=== PATIENT | female | born 1995 | race African-American/Black ===

== ENCOUNTER 2016-08-06 18:15 | Emergency (ER) | payer OTHER ==
[~2016-08-06 18:15] MED LIST: ARISTOCORT OINT15 GM TOP; BENADRYL/LIDO/MAALOX PO; BROMFED DM COU118 ML PO; DEPO-SUBQ104 MG/0.6 SC; FIORICET 325 MG1 TAB PO; METFORMIN HCL500 MG PO; METFORMIN HYDR500 MG PO; ROBITUSSIN W/CO10 ML PO; TESSALON PERLE100 MG PO; ZOFRAN4 M2 PO
--- NOTE | 2016-08-06 19:03 | ED INFLUENZA/URI COMPLAINT ---
History of Present Illness General Chief Complaint: General Adult Stated Complaint: "I GOT A BAD COUGH" Source: patient Exam Limitations: no limitations Vital Signs & Intake/Output Vital Signs & Intake/Output Vital Signs Date Time Temp Pulse Resp B/P Pulse O2 O2 Flow FiO2 Ox Delivery Rate 08/07 1939 97.8 92 18 135/84 98 Room Air 08/06 1829 97.6 93 137/88 97 Allergies Coded Allergies: NO KNOWN ALLERGIES (08/27/15) Reconcile Medications Insulin Glargine,Hum.rec.anlog (Lantus Solostar) (Unknown Strength) INSULN.PEN (Unknown Dose) SC BID DM (Reported) Liraglutide (Victoza 2-Lucio) (Unknown Strength) PEN.INJCTR (Unknown Dose) SC QAM DM (Reported) Medroxyprogesterone Acetate (Depo-Provera) 150 MG/ML SYRINGE 1 ML IM Q3M CONTROL (Reported) Triage Note: PER PT COUGH AND SORE THROAT CHILLS RECENTLY HAD A COLD LAST WEEK. PER PT DOES NOT GET A PERIOD. D/T DEPO.UNABLE TO PRODUCE SPUTUM PAIN TO THROAT Triage Nurses Notes Reviewed? yes Onset: Gradual Duration: constant Timing: recent history Severity: mild Severity Numbers: 3 No Modifying Factors: none : No Patient currently breastfeeds: No HPI: Patient is a 20-year-old female who presents emergency in approximately one week ago she was complaining of a runny nose and then in the last 2-3 days she's been complaining of nonproductive persistent cough sore throat and chills. Patient has positive sick contacts. Denies any chest pain shortness of breath hemoptysis nausea vomiting abdominal pain. (JOSE GUADALUPE KILGORE) Past History Travel History Traveled to [place] past 21 day No Medical History Any Pertinent Medical History? 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 No (JOSE GUADALUPE KILGORE) Review of Systems Review of Systems Constitutional: Reports: see HPI. EENTM: Reports: see HPI. Respiratory: Reports: see HPI, cough. Cardiovascular: Reports: no symptoms. GI: Reports: no symptoms. Genitourinary: Reports: no symptoms. Musculoskeletal: Reports: no symptoms. Skin: Reports: no symptoms. Neurological/Psychological: Reports: no symptoms. Hematologic/Endocrine: Reports: no symptoms. Immunologic/Allergic: Reports: no symptoms. All Other Systems: Reviewed and Negative (JOSE GUADALUPE KILGORE) Physical Exam Physical Exam Ears, Nose, Throat: normal ENT inspection, moist mucous membrane, hearing grossly normal, Tympanic normal, pharynx normal Comments: Well-developed well-nourished person in no acute distress HEENT: Normal EENT exam, extraocular motion intact, no nystagmus. Pupils equally round and reactive to light and accommodation. Nose is atraumatic. External auditory canal and Tympanic membranes clear. Pharynx normal. No swelling or edema. Neck: Supple, no lymphadenopathy, normal range of motion without pain or tenderness Back: Nontender, no CVA tenderness. Cardiovascular: Regular rate and rhythms no murmurs rubs or gallops, normal JVP Respiratory: Chest nontender. No respiratory distress.breath sounds clear to auscultation bilaterally Abdomen: Soft, nontender nondistended, no appreciable organomegaly. Normal bowel sounds. No ascites Extremity: No edema, no calf tenderness to palpation, normal and equal pulses. Neuro: Alert oriented x3, motor sensory normal, Skin: No appreciable rash on exposed skin, skin is warm and dry. Psych: Mood and affect is normal, memory and judgment is normal. Core Measures Severe Sepsis Present: No Septic Shock Present: No (JOSE GUADALUPE KILGORE) Progress Differential Diagnosis: influenza, meningitis, neutropenia, otitis, pneumonia, pharyngitis, sinusitis Plan of Care: Orders Procedure Date/time Status THROAT CULTURE W/QUICK STREP 08/06 1832 Active Laboratory Tests 08/06/16 1905: Urine Test Cancelled Patient was in no apparent distress nontoxic-appearing afebrile clear lungs auscultation ENT exam was unremarkable. (JOSE GUADALUPE KILGORE) Initial ED EKG: none (JOSE GUADALUPE KILGORE) Departure Departure Disposition: HOME OR SELF CARE Condition: Stable Clinical Impression Primary Impression: Upper respiratory infection Referrals: JEREMY LI,MARÍA Lau (PCP/Family) Additional Instructions: As discussed begin the prescription of azithromycin as directed for the full course, please begin the prescription of TESSALON PERLES for Cough and Medrol Dosepak for Inflammation,. Prescriptions Waiting at [facility]. If Symptoms Worsen Return to Emergency. If No Better in One Week Follow-Up with Her Primary Care Doctor. Departure Forms: Customer Survey General Discharge Information (SHARRON MORENO,JOSE GUADALUPE) PA/WAGE ADJUSTER Co-Sign Statement Statement: ED Attending supervision documentation- [] I saw and evaluated the patient. I have also reviewed all the pertinent lab results and diagnostic results. I agree with the findings and the plan of care as documented in the PA's/WAGE ADJUSTER's documentation. [X] I have reviewed the ED Record and agree with the PA's/WAGE ADJUSTER's documentation. [] Additions or exceptions (if any) to the PAs/WAGE ADJUSTER's note and plan are summarized below: [] (JOHN LI,NATHALY Chavez)
[2016-08-06] MEDS ORDERED: TESSALON PERLE100 M1 PO (19:14)
[2016-08-06] MEDS ORDERED: ZITHROMAX500 M2 PO (19:14)
[2016-08-06] MEDS ORDERED: MEDROL4 M2 PO (19:14)
[2016-08-06] MEDS ORDERED: LANTUS SOL100 UNIT/1 SC (19:19)
[2016-08-06] MEDS ORDERED: VICTOZA 2-0.6 MG/0.1 SC (19:19)
[2016-08-06] MEDS ORDERED: DEPO-PROVE150 MG/11 IM (19:20)
[2016-08-06 19:40] VITALS: BP 135/84
== END 2016-08-06 19:40 ==
LOC: ERH 18:15
DX: J06.9 Acute upper respiratory infection, unspecified (principal)
CPT/HCPCS: 81025

== ENCOUNTER 2017-10-31 14:20 | Emergency (ER) | payer OTHER ==
[~2017-10-31] VITALS: Ht 180.3 cm; Wt 149.7 kg
[~2017-10-31 14:20] MED LIST changes: +DEPO-PROVE150 MG/11 IM; +HYDROXYZINE HCL50 M1 PO; +LANTUS SOL100 UNIT/1 SC; +MEDROL4 M2 PO; +PREDNISONE10 M2 PO; +TESSALON PERLE100 M1 PO; +VICTOZA 2-0.6 MG/0.1 SC; +ZITHROMAX500 M2 PO
[2017-10-31 14:28] VITALS: BP 154/105
[2017-10-31 14:57] LABS: ABSOLUTE BASOPHIL COUNT 0.1 /CUMM (0.0-0.2); ABSOLUTE EOSINOPHIL COUNT 0.1 /CUMM (0.0-0.7); ABSOLUTE GRANULOCYTE CT 4.2 /CUMM (1.4-6.5); ABSOLUTE LYMPH COUNT 3.2 /CUMM (1.2-3.4); ABSOLUTE MONOCYTE COUNT 0.6 /CUMM (0.10-0.60); BASOPHIL % 0.7 % (0.0-2.0); EOSINOPHIL % 1.7 % (0-5); GRANULOCYTE % 50.6 % (42.2-75.2); HEMATOCRIT 36.4 % (37-47); MEAN CORPUSCULAR HGB 27.5 PG (27.0-31.0); MEAN CORPUSCULAR HGB CONC 32.1 G/DL (33.0-37.0); MEAN CORPUSCULAR VOLUME 85.8 FL (81.0-99.0); MEAN PLATELET VOLUME 9.5 FL (7.4-10.4); PLATELET COUNT 310 /CUMM (130-400); RBC DISTRIBUTION WIDTH 13.7 % (11.5-14.5); RED BLOOD CELL CT 4.24 /CUMM (4.20-5.40); WHITE BLOOD CELL COUNT 8.3 /CUMM (4.8-10.8)
--- NOTE | 2017-10-31 16:53 | ED GENERAL ADULT ---
History of Present Illness General Chief Complaint: General Adult Stated Complaint: PT NEED TO GET RX FOR SUGAR Source: patient Exam Limitations: no limitations Vital Signs & Intake/Output Vital Signs & Intake/Output Vital Signs Date Time Temp Pulse Resp B/P B/P Pulse O2 O2 Flow FiO2 Mean Ox Delivery Rate 10/31 1428 97.3 93 18 154/105 95 Room Air Allergies Coded Allergies: NO KNOWN ALLERGIES (08/27/15) Reconcile Medications Hydroxyzine Hydrochloride (Atarax) 50 MG TAB 1 TAB PO TID PRN ITCHING Insulin Glargine,Hum.rec.anlog (Lantus Solostar) (Unknown Strength) INSULN.PEN (Unknown Dose) SC BID DM (Reported) Liraglutide (Victoza 2-Lucio) (Unknown Strength) PEN.INJCTR (Unknown Dose) SC QAM DM (Reported) Medroxyprogesterone Acetate (Depo-Provera) 150 MG/ML SYRINGE 1 ML IM Q3M CONTROL (Reported) Metformin HCl (Metformin HCl ER) 500 MG TAB.ER.24 1 TAB PO BID diabetes Prednisone 10 MG TABLET 1 DOSE PO ONCE DAILY RASH 6 TABS X3 DAYS, 5 TAB 3 DAYS, 4 X3 DAYS, 3X3 DAYS, 2X3 DAYS 1 X 3 DAYS Triage Note: 21 Y/O FEMALE REQUESTING PRESCRIPTIONS FOR VICTOZA AND LANTUS. STATES SHE HAS BEEN OUT OF MEDS "FOR A WHILE" (>1 MONTH) DUE TO BEING ABLE TO GO TO DOCTOR AFTER TURNING 21 YEARS OLD. PT REPORTS INCREASED DIAPHORESIS AND URINATION. FINGERSTICK IN TRIAGE 131 EVAL'D BY JOSH HANNAH. Triage Nurses Notes Reviewed? yes Onset: Gradual Duration: week(s): Timing: recent history Severity: moderate : No Patient currently breastfeeds: No HPI: 21-year-old female with history of type 2 diabetes presents to emergency department requesting medication refills and referral to a new scrip clerk. Patient states that since she turned 21 she is not been able to follow up with her pediatric scrip clerk. Patient states she's been out of her medications for about one month or longer. Patient was formerly taking Victoza, Lantus, metformin. Patient states that fingerstick glucoses at home has been "high" however she does not remember the amounts. Patient reports polydipsia, intermittent diaphoresis, urinary frequency, intermittent headaches. Currently patient does not have a headache. (Radha Rivero) Past History Travel History Traveled to [place] past 21 day No Medical History Any Pertinent Medical History? 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 No (Radha Rivero) Review of Systems Review of Systems Constitutional: Reports: see HPI. EENTM: Reports: no symptoms. Respiratory: Reports: no symptoms. Cardiovascular: Reports: no symptoms. GI: Reports: no symptoms. Genitourinary: Reports: see HPI. Musculoskeletal: Reports: no symptoms. Skin: Reports: no symptoms. Neurological/Psychological: Reports: see HPI. Hematologic/Endocrine: Reports: see HPI. Immunologic/Allergic: Reports: no symptoms. All Other Systems: Reviewed and Negative (Radha Rivero) Physical Exam Physical Exam General Appearance: well developed/nourished, no apparent distress, alert, awake , obese Head: atraumatic, normal appearance Eyes: Bilateral: normal appearance. Ears, Nose, Throat: hearing grossly normal Neck: normal inspection, supple, full range of motion Respiratory: normal breath sounds, no respiratory distress, lungs clear Cardiovascular: regular rate/rhythm Gastrointestinal: normal bowel sounds, soft, non-tender, no organomegaly Back: normal inspection, normal range of motion Extremities: normal inspection, normal range of motion Neurologic/Psych: awake, alert, oriented x 3 Skin: intact, normal color, warm/dry Core Measures ACS in differential dx? No CVA/TIA Diagnosis: No Sepsis Present: No Sepsis Focused Exam Completed? No (Radha Rivero) Progress Differential Diagnoses I considered the following diagnoses in my evaluation of the patient: [Diabetes, hyperglycemia, electrolyte abnormality, UTI] Plan of Care: Orders Procedure Date/time Status URINALYSIS 10/31 1432 Complete COMPREHENSIVE METABOLIC PANEL 10/31 1432 Complete CBC WITHOUT DIFFERENTIAL 10/31 143 Complete Laboratory Tests 10/31/17 1627: Urinalysis MOD H, Urine Color YEL, Urine Clarity CLDY H, Urine pH 6.0, Ur Specific Foss >= 1.030, Urine Protein NEG, Urine Ketones NEG, Urine Nitrite NEG, Urine Bilirubin NEG, Urine Urobilinogen 0.2, Ur Leukocyte Esterase NEG, Ur Microscopic SEDIMENT EXAMINED, Urine RBC RARE, Urine WBC 3-5 H, Ur Epithelial Cells MANY H, Urine Bacteria MANY H, Urine Mucus MANY H, Urine Hemoglobin NEG , Urine Glucose NEG 10/31/17 1447: Anion Gap 12, Estimated GFR > 60, BUN/Creatinine Ratio 12.9, Glucose 139 H, Calcium 9.5, Total Bilirubin 0.6, AST 20, ALT 29, Alkaline Phosphatase 51, Total Protein 7.8, Albumin 4.2, Globulin 3.6, Albumin/Globulin Ratio 1.2, CBC w Diff NO MAN DIFF REQ, RBC 4.24, MCV 85.8, MCH 27.5, MCHC 32.1 L, RDW 13.7, MPV 9.5, Gran % 50.6, Lymphocytes % 39.2, Monocytes % 7.8, Eosinophils % 1.7, Basophils % 0.7, Absolute Granulocytes 4.2, Absolute Lymphocytes 3.2, Absolute Monocytes 0.6 , Absolute Eosinophils 0.1, Absolute Basophils 0.1 Fingerstick glucose here in the emergency department is stable. Patient's chemistry panel is stable here patient sitting in stretcher in no acute distress , nontoxic appearing, vital signs are within normal limits. Patient has been off her diabetes medications for over one month now. Despite being off her medications for blood sugar is reasonable here in the emergency department. Starting 3 medications at once without close follow-up could cause hypoglycemia or other complication. Will initiate metformin 500 mg twice a day and have patient follow up with Dr. Draper for endocrinology. She was instructed to call tomorrow to make an appointment for as soon as possible for a prescription for her medications. The patient agrees with this plan of care. Dr. Dorsey agrees with this plan. Initial ED EKG: none (Zeina MORENO,Radha Rey) Departure Departure Disposition: HOME OR SELF CARE Condition: Stable Clinical Impression Primary Impression: Diabetes Qualifiers: Diabetes mellitus type: type 2 Diabetes mellitus intermediate project manager insulin use: unspecified intermediate project manager insulin use status Diabetes mellitus complication status: with unspecified complications Qualified Code: E11.8 - Type 2 diabetes mellitus with unspecified complications Referrals: Patient Has No Primary Care Dr (PCP/Family) Additional Instructions: Take metformin as prescribed for diabetes. You were given a referral to a new scrip clerk to follow up with, call the office tomorrow to make an appointment for as soon as possible. Return here to the emergency Department with any worsening symptoms or concerns. Please note that there might be incidental findings in your evaluation that are unrelated to the current emergency department visit. Please notify your primary care doctor about this emergency department visit in order to obtain and review all of the testing performed so that these incidental findings can be monitored as needed. If you had an x-ray performed, please understand that some fractures may not be seen on the initial set of x-rays. If your symptoms persist you might need a repeat set of x-rays to check for such a fracture. If you had a laceration evaluated, please understand that foreign bodies such as glass or wood may not be visible to the naked eye or on plain x-rays. If the wound becomes red, swollen, increasingly more painful or if there is any drainage from the wound, please have it reevaluated by a physician for the possibility of a retained foreign body. If you're unable to follow up as outlined in the discharge instructions please return to the emergency department. Thank you for choosing the [facility] Emergency Department for your care. It was a pleasure to serve you today. Departure Forms: Customer Survey General Discharge Information Prescriptions: Current Visit Scripts Metformin HCl (Metformin HCl ER) 1 TAB PO BID #20 TAB (Radha Rivero) PA/DISPATCHER CHIEF COAL SLURRY Co-Sign Statement Statement: ED Attending supervision documentation- [] I saw and evaluated the patient. I have also reviewed all the pertinent lab results and diagnostic results. I agree with the findings and the plan of care as documented in the PA's/DISPATCHER CHIEF COAL SLURRY's documentation. [x] I have reviewed the ED Record and agree with the PA's/DISPATCHER CHIEF COAL SLURRY's documentation. [] Additions or exceptions (if any) to the PAs/DISPATCHER CHIEF COAL SLURRY's note and plan are summarized below: [] (Jese Dorsey DO) Critical Care Note Critical Care Note Critical Care Time: non-applicable (Radha Rivero)
[2017-10-31] MEDS ORDERED: METFORMIN HCL500 M2 PO (16:58)
== END 2017-10-31 17:32 ==
LOC: ERH 14:20
PROVIDERS: Physician Assistant
DX: E11.9 Type 2 diabetes mellitus without complications (principal); Z79.4 Long term (current) use of insulin; R51 Headache; R35.0 Frequency of micturition
CPT/HCPCS: 81001

== ENCOUNTER 2018-01-16 19:30 | Emergency (ER) | payer OTHER ==
[~2018-01-16 19:30] MED LIST changes: +METFORMIN HCL500 M2 PO
[2018-01-16 19:43] VITALS: BP 154/87
--- NOTE | 2018-01-16 19:47 | ED NECK/BACK PAIN COMPLAINT ---
History of Present Illness General Chief Complaint: General Adult Stated Complaint: "LOWER BACK PAIN, UNUSUAL MENSTATION" Source: patient Exam Limitations: no limitations Vital Signs & Intake/Output Vital Signs & Intake/Output Vital Signs Date Time Temp Pulse Resp B/P B/P Pulse O2 O2 Flow FiO2 Mean Ox Delivery Rate 01/16 1943 97.4 98 20 154/87 97 Room Air Allergies Coded Allergies: NO KNOWN ALLERGIES (08/27/15) Reconcile Medications Hydroxyzine Hydrochloride (Atarax) 50 MG TAB 1 TAB PO TID PRN ITCHING Insulin Glargine,Hum.rec.anlog (Lantus Solostar) (Unknown Strength) INSULN.PEN (Unknown Dose) SC BID DM (Reported) Liraglutide (Victoza 2-Lucio) (Unknown Strength) PEN.INJCTR (Unknown Dose) SC QAM DM (Reported) Medroxyprogesterone Acetate (Depo-Provera) 150 MG/ML SYRINGE 1 ML IM Q3M CONTROL (Reported) Metformin HCl (Metformin HCl ER) 500 MG TAB.ER.24 1 TAB PO BID diabetes Prednisone 10 MG TABLET 1 DOSE PO ONCE DAILY RASH 6 TABS X3 DAYS, 5 TAB 3 DAYS, 4 X3 DAYS, 3X3 DAYS, 2X3 DAYS 1 X 3 DAYS Triage Nurses Notes Reviewed? yes Onset: Gradual Duration: day(s): Timing: recent history Quality/Severity: moderate Location: LEFT LOWER BACK : No Patient currently breastfeeds: No HPI: 22YO FEMALE with hx of DM presents to ED complaining of left sided back pain x 1 week. Patient states pain has gradually worsened. Pain currently 8/10, nagging. She googled back pain and thinks she may have a UTI. Patient reports dysuria, urinary frequency. Patient also notes vaginal bleeding which is red/brown, She states this is irregular for her because she is on the depo shot. The patient is not sexually active at this time, no new sexual partners. (Zeina MORENO,Radha Rey) Past History Travel History Traveled to [place] past 21 day No Medical History Any Pertinent Medical History? 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 No (Radha Rivero) Review of Systems Review of Systems Constitutional: Reports: no symptoms. Eyes: Reports: no symptoms. Ears, Nose, Throat, Mouth: Reports: no symptoms. Respiratory: Reports: no symptoms. Cardiovascular: Reports: no symptoms. Gastrointestinal/Abdominal: Reports: see HPI. Musculoskeletal: Reports: see HPI. Skin: Reports: no symptoms. Neurological/Psychological: Reports: no symptoms. All Other Systems: Reviewed and Negative Comments : SEE HPI (Radha Rivero) Physical Exam Physical Exam General Appearance: well developed/nourished, no apparent distress, alert, awake Head: atraumatic, normal appearance Eyes: Bilateral: normal appearance. Ears, Nose, Throat, Mouth: hearing grossly normal Neck: normal inspection, supple, full range of motion Respiratory: no respiratory distress Back: LEFT LOWER BACK TENDERNESS, +LUMBAR TENDERNESS, NO CVA TENDERNESS Extremities: normal range of motion Neurologic/Psych: awake, alert, oriented x 3, normal gait Skin: intact, normal color, warm/dry Comments: Full /complete exam was not performed as patient left prior to complete evaluation Core Measures CVA/TIA Diagnosis: No (Radha Rivero) Progress Differential Diagnosis: herniated disc, myofascial strain, pyelo/UTI, sciatica, spinal cord inj, T/L spine injury, ureterolithiasis Plan of Care: Orders Procedure Date/time Status URINE 01/16 1942 Active URINALYSIS 01/16 1942 Active I evaluated this patient in triage and did a brief physical exam however did not completely examine this patient. I recommended urinalysis as well as lumbar x- rays that the patient agrees to. Patient does report she has an appointment with her CONVERSION MAN scheduled for a few weeks from now. While waiting in the emergency department the patient left prior to obtaining urinalysis or x-rays. She was not discharged. (Radha Rivero) Departure Departure Disposition: ER WALKOUT Condition: Stable Clinical Impression Primary Impression: Back pain Referrals: Patient Has No Primary Care Dr Departure Forms: Customer Survey General Discharge Information (Radha Rivero) PA/BACKPACKERS MANAGER Co-Sign Statement Statement: ED Attending supervision documentation- I saw and evaluated the patient. I have also reviewed all the pertinent lab results and diagnostic results. I agree with the findings and the plan of care as documented in the PA's/BACKPACKERS MANAGER's documentation. x I have reviewed the ED Record and agree with the PA's/BACKPACKERS MANAGER's documentation. [] Additions or exceptions (if any) to the PAs/BACKPACKERS MANAGER's note and plan are summarized below: [] (Barbara LI,Parminder)
[2018-01-17] MEDS ORDERED: IBUPROFEN800 M1 PO (23:29)
[2018-01-17] MEDS ORDERED: CYCLOBENZAPRINE5 M2 PO (23:29)
== END 2018-01-16 21:00 | disposition admitted as inpatient to this hospital (09) ==
LOC: ERH 19:30
DX: M54.9 Dorsalgia, unspecified (principal)
CPT/HCPCS: 81025

== ENCOUNTER 2018-01-17 20:12 | Emergency (ER) | payer OTHER ==
[~2018-01-17] VITALS: Ht 180.3 cm; Wt 145.2 kg
[2018-01-17 20:53] LABS: ABSOLUTE BASOPHIL COUNT 0.1 /CUMM (0.0-0.2); ABSOLUTE EOSINOPHIL COUNT 0.1 /CUMM (0.0-0.7); ABSOLUTE GRANULOCYTE CT 4.9 /CUMM (1.4-6.5); ABSOLUTE LYMPH COUNT 4.6 /CUMM (1.2-3.4); ABSOLUTE MONOCYTE COUNT 0.8 /CUMM (0.10-0.60); BASOPHIL % 0.6 % (0.0-2.0); EOSINOPHIL % 1.1 % (0-5); GRANULOCYTE % 46.9 % (42.2-75.2); HEMATOCRIT 38.6 % (37-47); MEAN CORPUSCULAR HGB 27.2 PG (27.0-31.0); MEAN CORPUSCULAR HGB CONC 32.3 G/DL (33.0-37.0); MEAN CORPUSCULAR VOLUME 84.2 FL (81.0-99.0); MEAN PLATELET VOLUME 9.9 FL (7.4-10.4); PLATELET COUNT 305 /CUMM (130-400); RBC DISTRIBUTION WIDTH 14.2 % (11.5-14.5); RED BLOOD CELL CT 4.58 /CUMM (4.20-5.40); WHITE BLOOD CELL COUNT 10.5 /CUMM (4.8-10.8)
[2018-01-17] MEDS ORDERED: CYCLOBENZAPRINE5 M2 PO (23:29)
[2018-01-17] MEDS ORDERED: IBUPROFEN800 M1 PO (23:29)
--- NOTE | 2018-01-17 23:29 | ED NECK/BACK PAIN COMPLAINT ---
History of Present Illness General Chief Complaint: General Adult Stated Complaint: "LOWER BACK PAIN RADIATES RT ABD AND DIFF.BREATHIN Source: patient Exam Limitations: no limitations Vital Signs & Intake/Output Vital Signs & Intake/Output Vital Signs Date Time Temp Pulse Resp B/P B/P Pulse O2 O2 Flow FiO2 Mean Ox Delivery Rate 01/18 0024 82 18 132/80 96 Room Air 01/18 0005 Room Air 01/17 2022 97.9 87 16 135/88 95 ED Intake and Output 01/18 0000 01/17 1200 Intake Total Output Total Balance Patient 320 lb Weight Weight Reported by Patient Measurement Method Allergies Coded Allergies: NO KNOWN ALLERGIES (08/27/15) Reconcile Medications Cyclobenzaprine HCl 5 MG TABLET 1 TAB PO TIDPRN PRN muscle strain Hydroxyzine Hydrochloride (Atarax) 50 MG TAB 1 TAB PO TID PRN ITCHING Ibuprofen 800 MG TABLET 1 TAB PO TID PRN pain Insulin Glargine,Hum.rec.anlog (Lantus Solostar) (Unknown Strength) INSULN.PEN (Unknown Dose) SC BID DM (Reported) Liraglutide (Victoza 2-Lucio) (Unknown Strength) PEN.INJCTR (Unknown Dose) SC QAM DM (Reported) Medroxyprogesterone Acetate (Depo-Provera) 150 MG/ML SYRINGE 1 ML IM Q3M CONTROL (Reported) Metformin HCl (Metformin HCl ER) 500 MG TAB.ER.24 1 TAB PO BID diabetes Prednisone 10 MG TABLET 1 DOSE PO ONCE DAILY RASH 6 TABS X3 DAYS, 5 TAB 3 DAYS, 4 X3 DAYS, 3X3 DAYS, 2X3 DAYS 1 X 3 DAYS Triage Note: pt to ed for low back pain radiating to R flank x2 weeks. came to ED yesterday "but the wait was too long, i googled it and it said probably and infection so i came back today" +dysuria and "blood on tissue when i wipe" denies chance of "i've had the depo shot for years" provided with urine sample cup in triage. Triage Nurses Notes Reviewed? yes Onset: Gradual Duration: day(s): Timing: recent history Quality/Severity: moderate Location: lumbar spine, paraspinous muscles : No Patient currently breastfeeds: No HPI: 22-year-old female with history of diabetes presents to emergency department complaining of left-sided lower back pain for the past several days. Patient states pain is gradually worsened, she has tried [id number] Tylenol without relief of her symptoms. Pain is worse with movement. Patient also reports right upper/mid abdominal pain beginning today. She reports todaY she noted dysuria. Patient also reports that recently she has been having brown vaginal bleeding, she states is his regular for her since she is on depo shot. No new sexual partners. No recent fall or back trauma, no fevers, vomiting, diarrhea. (Radha Rivero) Past History Travel History Traveled to [place] past 21 day No Medical History Any Pertinent Medical History? 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 No (Radha Rivero) Review of Systems Review of Systems Constitutional: Reports: no symptoms. Eyes: Reports: no symptoms. Ears, Nose, Throat, Mouth: Reports: no symptoms. Respiratory: Reports: no symptoms. Cardiovascular: Reports: no symptoms. Gastrointestinal/Abdominal: Reports: see HPI. Musculoskeletal: Reports: see HPI. Skin: Reports: no symptoms. Neurological/Psychological: Reports: no symptoms. All Other Systems: Reviewed and Negative Comments : SEE HPI (Radha Rivero) Physical Exam Physical Exam General Appearance: well developed/nourished, no apparent distress, alert, awake , obese Head: atraumatic, normal appearance Eyes: Bilateral: normal appearance. Ears, Nose, Throat, Mouth: hearing grossly normal Neck: normal inspection, supple, full range of motion Respiratory: normal breath sounds, no respiratory distress, lungs clear Cardiovascular: regular rate/rhythm Gastrointestinal: normal bowel sounds, soft, no organomegaly, MILD diffuse tenderness, no gaurding Back: normal inspection, normal range of motion, lumbar spine tenderness, no CVA tenderness Extremities: normal range of motion Neurologic/Psych: awake, alert, oriented x 3, normal gait Skin: intact, normal color, warm/dry Core Measures CVA/TIA Diagnosis: No (Radha Rivero) Progress Differential Diagnosis: herniated disc, myofascial strain, pyelo/UTI, sciatica, spinal cord inj, T/L spine injury, ureterolithiasis Plan of Care: Orders Procedure Date/time Status COMPREHENSIVE METABOLIC PANEL 01/17 2023 Complete CBC WITHOUT DIFFERENTIAL 01/17 2023 Complete URINE 01/17 2022 Complete URINALYSIS 01/17 2022 Complete Laboratory Tests 01/17/182041: Urine Color PINK H, Urine Clarity HAZY H, Urine pH 6.0, Ur Specific [place] 1.020, Urine Protein TRACE H, Urine Ketones NEG, Urine Nitrite NEG, Urine Bilirubin NEG, Urine Urobilinogen 0.2, Ur Leukocyte Esterase NEG, Ur Microscopic SEDIMENT EXAMINED, Urine RBC PACKD H, Urine WBC 3-5 H, Ur Epithelial Cells MOD H, Urine Bacteria MOD H, Urine Hemoglobin LARGE H, Urine Glucose >=1000 H, Urine Test NEGATIVE 01/17/182039: Anion Gap 11, Estimated GFR > 60, BUN/Creatinine Ratio 10.0, Glucose 281 H, Calcium 9.4, Total Bilirubin 0.4, AST 15, ALT 25, Alkaline Phosphatase 61, Total Protein 7.7, Albumin 4.1, Globulin 3.6, Albumin/Globulin Ratio 1.1, CBC w Diff NO MAN DIFF REQ, RBC 4.58, MCV 84.2, MCH 27.2, MCHC 32.3 L, RDW 14.2, MPV 9.9, Gran % 46.9, Lymphocytes % 43.4, Monocytes % 8.0, Eosinophils % 1.1, Basophils % 0.6, Absolute Granulocytes 4.9, Absolute Lymphocytes 4.6 H, Absolute Monocytes 0.8 H, Absolute Eosinophils 0.1, Absolute Basophils 0.1 Patient has blood in her urine however she is currently menstruating. Low suspicion for acute nephrolithiasis based on her symptoms and clinical presentation. Her back pain is located in the lower back area, not flank area. Patient is sitting in stretcher on her phone, no acute distress, she is comfortable. Will obtain xray images for further assessment. Xrays are stable. Patient started on mobic and flexoril for her symptoms. She is ambulatory without difficulty leaving the ED. The patient agrees with the plan of care. She will follow up with [facility] regarding vaginal bleeding. Diagnostic Imaging: Viewed by Me: Radiology Read. Discussed w/RAD: Radiology Read. Radiology Impression: PATIENT: SHIVA KAPADIA PRESENT AGE: 22 PATIENT ACCOUNT NO: [id number] : 95 LOCATION: [facility] ORDERING PHYSICIAN: Radha MORENO SERVICE DATE: 01/17/18 EXAM TYPE: RAD - XRY-LUMBOSACRAL SPINE 4 VIEWS EXAMINATION: XR LUMBOSACRAL SPINE CLINICAL INFORMATION: Low back pain COMPARISON: CT scan abdomen pelvis June 26, 2013 TECHNIQUE: AP. Lateral. Cone-down AP lateral lumbosacral junction view FINDINGS: The vertebral bodies and posterior elements are normal. The disc spaces are preserved and the vertebral alignment is normal. The paraspinal soft tissues are normal. IMPRESSION: Unremarkable examination. DICTATED BY: Deepak Carlos MD DATE/ TIME DICTATED:01/18/184 CLERICAL ADJUDICATOR:GERRY DATE/TIME TRANSCRIBED: 01/18/184 CONFIDENTIAL, DO NOT COPY WITHOUT APPROPRIATE AUTHORIZATION. < Electronically signed in Other Vendor System> SIGNED BY: Deepak Carlos MD [id number] (Zeina MORENO,Rahda Rey) Departure Departure Disposition: HOME OR SELF CARE Condition: Stable Clinical Impression Primary Impression: Back pain Referrals: Unknown (PCP/Family) Additional Instructions: Follow-up with your [facility] regarding her vaginal bleeding. Take ibuprofen 800 mg 3 times a day for back pain. Return if if worsening symptoms or concerns. Please note that there might be incidental findings in your evaluation that are unrelated to the current emergency department visit. Please notify your primary care doctor about this emergency department visit in order to obtain and review all of the testing performed so that these incidental findings can be monitored as needed. If you had an x-ray performed, please understand that some fractures may not be seen on the initial set of x-rays. If your symptoms persist you might need a repeat set of x-rays to check for such a fracture. If you had a laceration evaluated, please understand that foreign bodies such as glass or wood may not be visible to the naked eye or on plain x-rays. If the wound becomes red, swollen, increasingly more painful or if there is any drainage from the wound, please have it reevaluated by a physician for the possibility of a retained foreign body. If you're unable to follow up as outlined in the discharge instructions please return to the emergency department. Thank you for choosing the [facility] Emergency Department for your care. It was a pleasure to serve you today. Departure Forms: Customer Survey General Discharge Information Prescriptions: Current Visit Scripts Ibuprofen 1 TAB PO TID PRN pain #30 TAB Cyclobenzaprine HCl 1 TAB PO TIDPRN PRN muscle strain #21 TAB (Zeina MORENO,Radha Rey) PA/SECURITY RISK ANALYST Co-Sign Statement Statement: ED Attending supervision documentation- [] I saw and evaluated the patient. I have also reviewed all the pertinent lab results and diagnostic results. I agree with the findings and the plan of care as documented in the PA's/SECURITY RISK ANALYST's documentation. [x] I have reviewed the ED Record and agree with the PA's/SECURITY RISK ANALYST's documentation. [] Additions or exceptions (if any) to the PAs/SECURITY RISK ANALYST's note and plan are summarized below: [] (Satish LI,Cassius Borden)
--- NOTE | 2018-01-18 00:10 | RADIOLOGY REPORT ---
EXAMINATION: XR LUMBOSACRAL SPINE CLINICAL INFORMATION: Low back pain COMPARISON: CT scan abdomen pelvis June 26, 2013 TECHNIQUE: AP. Lateral. Cone-down AP lateral lumbosacral junction view FINDINGS: The vertebral bodies and posterior elements are normal. The disc spaces are preserved and the vertebral alignment is normal. The paraspinal soft tissues are normal. IMPRESSION: Unremarkable examination.
[2018-01-18 00:24] VITALS: BP 132/80
== END 2018-01-18 00:26 ==
LOC: ERH 20:12
PROVIDERS: Physician Assistant
DX: M54.5 Low back pain (principal); E11.9 Type 2 diabetes mellitus without complications; Z79.84 Long term (current) use of oral hypoglycemic drugs
CPT/HCPCS: 72110; 81001; 81025